=== PATIENT | female | born 2000 | race Hispanic/Latino ===

== ENCOUNTER 2025-02-10 17:06 | Emergency (ER) | payer BC ==
[~2025-02-10] VITALS: Ht 162.6 cm; Wt 61.2 kg
--- NOTE | 2025-02-10 18:47 | NUR ---
ASSUMED CARE AT THIS TIME PT MOVED TO FAST TRACK
--- NOTE | 2025-02-10 18:57 | HMCIMG ---
Exam Type: ABD 1VW Clinical Information: constipation Comparison: None Findings: Abdomen demonstrates no evidence of pathologic calcification or soft tissue mass. There are no radiopacities to suggest calculous disease. There is abundant fecal matter consistent with constipation. There is no evidence of dilatation to suggest obstruction or adynamic ileus. The bony structures are unremarkable. IMPRESSION: Constipation.
[2025-02-10] MEDS: PEG 3350/NA SULF,BICARB,CL/KCL 4000 ML SOLN PO STA (19:41)
--- NOTE | 2025-02-10 20:50 | ERN ---
ED Note History of Present Illness Stated Complaint: UNABLE TO USE RESTROOM,ABDOMINAL PAIN Chief Complaint: Constipation Time Seen by MD: 17:41 Time Seen by Midlevel: 17:48 Dictation: 24-year-old female coming in with complaints of constipation. Patient states she had a hemorrhoidectomy on . Unable to have bowel movement for the last eight days. Patient denies any fevers, nausea or vomiting. Allergies: Coded Allergies: No Known Allergies (Unverified Allergy, Unknown, 02/10/25) Past Medical History Past Medical History: No Pertinent History Surgical History: Other Surgical History Other: HEMORRHOIDECTOMY LMP: Jan 20, 2025 Review of System Dictation Constitutional: Negative for fever,chills, and weight loss Eyes: Negative for injury, pain,redness, and discharge ENT: Negative for injury,pain or swelling Cardiovascular: Negative for chest pain, palpitations, and edema Respiratory: Negative for shortness of breath, cough, and wheezing, Abdomen/GI: Negative for abdominal pain, nausea, vomiting, diarrhea, and constipation Back: Negative for injury and pain : Negative for injury, bleeding and discharge MS/Extremity: Negative for injury and deformity Skin: Negative for rash, and discoloration Neuro: Negative for headache, weakness, numbness, tingling, and seizure Psych: Negative for suicide ideation, homicidal ideation, and hallucinations Review of Systems: was completed Initial Vital Sign VS Vital Signs Date Time Temp Pulse Resp B/P (MAP) Pulse Ox O2 Delivery O2 Flow Rate FiO2 02/10/25 17:40 98.2 93 20 107/76 99 Room Air 02/10/25 20:00 0 21 Physical Exam Dictation General: awake, alert, NAD Head/Face: Normocephalic, atraumatic Eyes: PERRL, EOMI, vision at baseline ENT: oral cavity clear, TMs clear, no signs of infection Neck: Trachea midline, supple, no nuchal rigidity Cardiovascular: RRR, normal S1/S2, No MRGs, no JVD Respiratory: CTAB, no respiratory distress, No rales or wheezes Abdomen: Soft, non-tender, non-distended, normal bowel sounds, no guarding or rebound. Skin: Warm, dry, normal turgor, no rash MS/Extremity: Pulses equal, no cyanosis, neurovascular intact, FROM Neuro: COAx4, GCS 15, strength 5/5, CN 2-12 intact, normal cerebellar exam, normal gait, Psych: Normal behavior, mood, and affect normal Results (Laboratory/Radiology) X-RAY Comment: [facility] [id number] [place] [address] IMAGING REPORT Signed PATIENT: KULDIP ISLAS MR#: [id number] : 2000 SEX: F AGE: 24 LOCATION: [facility] ORDER 55 STATUS: REG ER REPORT#: [id number] SERVICE 55 REASON: constipation ORDERING PHYSICIAN: CAMILLE ANN NP PROCEDURE: ABD 1VW - ABD 1VW Exam Type: ABD 1VW Clinical Information: constipation Comparison: None Findings: Abdomen demonstrates no evidence of pathologic calcification or soft tissue mass. There are no radiopacities to suggest calculous disease. There is abundant fecal matter consistent with constipation. There is no evidence of dilatation to suggest obstruction or adynamic ileus. The bony structures are unremarkable. IMPRESSION: Constipation. DICTATED BY: YOUSUF MENDEZ MD DATE: 02/10/251853 ELECTRONICALLY SIGNED BY: YOUSUF MENDEZ MD DATE: 02/10/251856 ED Course ED Course Orders Procedure Category Date Status Time Abd 1vw RAD 02/10/25 Resulted 17:56 Peg 3350/Na PHA 02/10/25 Complete Sulf,Bicarb,Cl/Kcl 17:59 Current Medications Medications (Trade) Dose Ordered Sig/Myron Route PRN Reason Start Time Stop Time Status Last Admin Dose Admin Polyethylene Glycol/ Electrolytes (Golytely/Colyte Soln) 4,000 ml ONCE STAT PO 02/10/25 17:59 02/10/25 18:01 DC 02/10/25 19:41 Vital Signs Date Time Temp Pulse Resp B/P (MAP) Pulse Ox O2 Delivery O2 Flow Rate FiO2 02/10/25 20:00 98.2 88 20 110/73 99 Room Air* 0 21 02/10/25 17:40 98.2 93 20 107/76 99 Room Air Medical Decision Making MDM MDM: 24-year-old female coming in with complaints of constipation. Patient states she had a hemorrhoidectomy on . Unable to have bowel movement for the last eight days. Patient denies any fevers, nausea or vomiting. X-ray shows evidence of constipation with no suspicion for SBO. Patient drank GoLYTELY in the ER and had a bowel movement. States feels better after bowel movement. Educated that I will discharge and has not follow up with their surgeon as scheduled and continue to take the GoLYTELY. Educated on signs and symptoms of when to return back to the ER. Both patient and mother verbalized understanding, answered all questions. Differential diagnosis: Constipation, fecal impaction Rationale: Tests considered and ordered secondary to shared decision making include: Previous outside records reviewed: Old ER visits. Risk of complication and/or morbidity or mortality of patient management: None Medications-Per medication reconciliation Need for hospitalization: Patient does not meet criteria for hospitalization. Need for emergency major/minor surgery: No There are no social concerns with this patient. Prescription drug management Prescriptions will include symptomatic care Patient's prior external medical records from other ER visits were reviewed by me as indicated. Prior testing and results from previous visits were reviewed. Prior tests were taken into account with medical decision making and resource utilization, independent historian/historians were used to obtain complete medical history. I independently interpreted the test that were performed, results were reviewed by me and considered findings on radiology if ordered. Medical management and examination interpretation discussions were had by me with other qualified healthcare professionals as indicated for the patient's care. DX & DISP Disposition: Discharge Departure Impression: Primary Impression: Constipation Condition: Stable Additional Instructions: Finish the GoLYTELY. Return if you have any worsening symptoms. Follow up with your surgeon as scheduled. Time of Disposition: 20:50 I have reviewed the case, and I agree with, Diagnosis and Plan CAMILLE ANN NP February 10, 2025 20:50
[2025-02-10 20:59] VITALS: BP 105/74; PULSE 85; RESP 20; TEMP 98.2; O2SAT 99
== END 2025-02-10 21:04 | disposition home or self-care (01) ==
LOC: EDH 17:06
DX: K59.00 Constipation, unspecified (principal); Z98.890 Other specified postprocedural states
CPT/HCPCS: 74018; 99283